=== PATIENT | male | born 1950 | race Caucasian/White ===

== ENCOUNTER → 2017-06-03 | Outpatient (CLI) | payer OTHER | END | disposition home or self-care (01) | LOC: CFH 10:06 | PROVIDERS: ATTEND Nurse Practitioner Family | DX: M19.031 Primary osteoarthritis, right wrist (principal); M79.89 Other specified soft tissue disorders ==

== ENCOUNTER → 2018-12-09 | Outpatient (CLI) | payer OTHER | END | disposition home or self-care (01) | LOC: RAD 07:25 | PROVIDERS: ATTEND Internal Medicine | DX: R13.19 Other dysphagia (principal) | CPT/HCPCS: 74220 ==